=== PATIENT | male | born 1960 | race Caucasian/White ===

== ENCOUNTER 2016-09-22 11:38 | Emergency (ER) | payer OTHER ==
[2016-09-22 11:43] VITALS: BP 125/78; PULSE 62; TEMP 98.1; BMI 31.2
--- NOTE | 2016-09-22 12:21 | PDOC ---
History of Present Illness - General Chief Complaint: Pain, Acute Stated Complaint: right elbow pain Time Seen by Provider: 09/22/16 11:45 History Source: Patient Exam Limitations: No Limitations - History of Present Illness Initial Comments: 09/22/16 12:16 56 yo M with no pmhx here c/o elbow pain s/p hitting his right elbow on a metal peice. felt buzzing. nerve like pain to small finger. now resolved but mild tingling. no wrist or shoulder pain. no weaknesss. no mod factors. no prior surgery. last tetanus over 10 yrs ago. small abrasion to forearm. no other complaints. Past History - Past Medical History Allergies/Adverse Reactions: Allergies Allergy/AdvReac Type Severity Reaction Status Date / Time No Known Allergies Allergy Verified 09/22/16 11:40 Anemia: No Asthma: No Cancer: No Cardiac Disorders: No CVA: No COPD: No CHF: No Dementia: No Diabetes: No GI Disorders: No Disorders: No HTN: No Hypercholesterolemia: Yes Liver Disease: No Seizures: No Thyroid Disease: No - Surgical History Abdominal Surgery: No Appendectomy: No Cardiac Surgery: No Cholecystectomy: No Lung Surgery: No Neurologic Surgery: No Orthopedic Surgery: Yes (Left Shoulder Arthroscopy) - Psycho/Social/Smoking Cessation Hx Anxiety: No Suicidal Ideation: No Smoking History: Never smoked Hx Alcohol Use: Yes Drug/Substance Use Hx: No Substance Use Type: Alcohol Hx Substance Use Treatment: No Review of Systems - Review of Systems Constitutional: No: Chills, Diaphoresis HEENTM: No: Blurred Vision Respiratory: No: Cough, Orthopnea Cardiac (ROS): No: Chest Pain, Edema : No: Burning, Dysuria, Discharge Musculoskeletal: Yes: Joint Pain Integumentary: Yes: Bruising, Other (abrasion). No: Change in Color Neurological: No: Headache, Numbness All Other Systems: Reviewed and Negative *Physical Exam - Vital Signs Last Vital Signs Temp Pulse Resp BP Pulse Ox 98.1 F 62 18 125/78 100 09/22/16 11:39 09/22/16 11:39 09/22/16 11:39 09/22/16 11:39 09/22/16 11:39 - Physical Exam General Appearance: Yes: Appropriately Dressed Respiratory/Chest: positive: Lungs Clear, Normal Breath Sounds Cardiovascular: positive: Regular Rhythm, Regular Rate, S1, S2 Musculoskeletal: positive: Normal Inspection, Other (right elbow with small swellling. small superficial abrasion right forearm. n/v intact. ) Extremity: positive: Normal Capillary Refill Integumentary: positive: Normal Color, Dry, Warm, Other (superficial abrasion) ED Treatment Course - RADIOLOGY Radiology Studies Ordered: Category Date Time Status ELBOW-RIGHT [RAD] Stat Radiology 09/22/16 12:15 Ordered Medical Decision Making - Medical Decision Making 09/22/16 13:14 xray negative for fracture. given motrin for pain, tetanus, dc home. *DC/Admit/Observation/Transfer Diagnosis at time of Disposition: Elbow contusion - Discharge Dispostion Condition at time of disposition: Stable - Patient Instructions Printed Discharge Instructions: Contusion Additional Instructions: apply ice to your elbow, follow up wtih your primary doctor. take ibuprofen 600 mg every 8 hours as needed for pain.
[2016-09-22] MEDS ORDERED: IBUPROFEN 600 MG TABLET (FP) PO ONE (13:14)
[2016-09-22] MEDS ORDERED: DIPHTH,PERTUSS(ACELL),TET 0.5 ML DISP.SYRIN IM ONE (13:14)
== END 2016-09-22 13:23 | disposition home or self-care (01) ==
LOC: FER 11:38
PROC: 3E0234Z Introduction of Serum, Toxoid and Vaccine into Muscle, Percutaneous Approach (ICD-10-PCS; principal; 2016-09-22)
DX: S50.01XA Contusion of right elbow, initial encounter (principal); W22.8XXA Striking against or struck by other objects, initial encounter; Y93.9 Activity, unspecified; Y92.9 Unspecified place or not applicable; E78.00 Pure hypercholesterolemia, unspecified
CPT/HCPCS: 73070-TC-RT; 90715; 99281-25

== ENCOUNTER 2018-04-21 10:23 | Emergency (ER) | payer BC, OTHER ==
--- NOTE | 2018-04-21 10:27 | PDOC ---
History of Present Illness - General Chief Complaint: Edema Stated Complaint: FEET SWELLING Time Seen by Provider: 04/21/18 10:27 Past History - Past Medical History Allergies/Adverse Reactions: Allergies Allergy/AdvReac Type Severity Reaction Status Date / Time No Known Allergies Allergy Verified 04/21/18 10:24 Home Medications: Ambulatory Orders Aspirin [ASA -] 325 mg PO DAILY 04/21/18 Anemia: No Asthma: No Cancer: No Cardiac Disorders: No CVA: No COPD: No CHF: No Dementia: No Diabetes: No GI Disorders: No Disorders: No HTN: No Hypercholesterolemia: Yes Liver Disease: No Seizures: No Thyroid Disease: No - Surgical History Abdominal Surgery: No Appendectomy: No Cardiac Surgery: No Cholecystectomy: No Lung Surgery: No Neurologic Surgery: No Orthopedic Surgery: Yes (Left Shoulder Arthroscopy) - Suicide/Smoking/Psychosocial Hx Smoking History: Never smoked Hx Alcohol Use: Yes Drug/Substance Use Hx: No Substance Use Type: Alcohol Hx Substance Use Treatment: No *DC/Admit/Observation/Transfer - Discharge Dispostion Condition at time of disposition: Stable - Referrals Referrals: Sang Rice MD [Primary Care Provider] - - Patient Instructions - Post Discharge Activity
[2018-04-21 10:29] VITALS: BP 138/76; PULSE 64; TEMP 97.9; BMI 29.8
--- NOTE | 2018-04-21 10:57 | PDOC ---
History of Present Illness - General Chief Complaint: Edema Stated Complaint: FEET SWELLING Time Seen by Provider: 04/21/18 10:27 History Source: Patient Exam Limitations: No Limitations - History of Present Illness Initial Comments: 04/21/18 10:55 57y M with no knowon pmhx presents with leg swelling. Notes he broke a couple of ribs dx by cxr erich mcneil on wednesday, taking perocoet fo rhis pain with improvement. this morning he was noticed leg swellnig to the mid calf, without discoloration without any pain. NOtes that he has been sedentary the past few days, on the couch with his legs hanging down the past 4 days, limiting his physical activity. he denies any cp, sob, hemoptysis, back pain, n/ v, salas, back pain. no prior history of dvts, not on exotenous steroids no family hx of dvts/pe soc history: works for department of [employer] Past History - Past Medical History Allergies/Adverse Reactions: Allergies Allergy/AdvReac Type Severity Reaction Status Date / Time No Known Allergies Allergy Verified 04/21/18 10:24 Home Medications: Ambulatory Orders Aspirin [ASA -] 325 mg PO DAILY 04/21/18 Anemia: No Asthma: No Cancer: No Cardiac Disorders: No CVA: No COPD: No CHF: No Dementia: No Diabetes: No GI Disorders: No Disorders: No HTN: No Hypercholesterolemia: Yes Liver Disease: No Seizures: No Thyroid Disease: No - Surgical History Abdominal Surgery: No Appendectomy: No Cardiac Surgery: No Cholecystectomy: No Lung Surgery: No Neurologic Surgery: No Orthopedic Surgery: Yes (Left Shoulder Arthroscopy) - Suicide/Smoking/Psychosocial Hx Smoking History: Never smoked Hx Alcohol Use: Yes Drug/Substance Use Hx: No Substance Use Type: Alcohol Hx Substance Use Treatment: No Review of Systems - Review of Systems Able to Perform ROS?: Yes Comments:: 04/21/18 11:12 CONSTITUTIONAL: No reported: Fever, Chills, Diaphoresis, Generalized Weakness, Malaise, Loss of Appetite HEENT: No reported: Rhinorrhea, Nasal Congestion, Throat Pain, Throat Swelling, Difficulty Swallowing, Mouth Swelling, Ear Pain, Eye Pain, Visual Changes CARDIOVASCULAR: No reported: Chest Pain, Syncope, Palpitations, Irregular Heart Rate, Lightheadedness RESPIRATORY: No reported: Cough, Shortness of Breath, SOB with Exertion, Orthopnea, Wheezing , Stridor, Hemoptysis GASTROINTESTINAL: No reported: Abdominal pain, Abdominal Distension, Nausea, Vomiting, Diarrhea, Constipation, Melena, Hematochezia GENITOURINARY: No reported: Dysuria, Frequency, Urgency, Hesitancy, Flank Pain, Genital Pain MUSCULOSKELETAL: +b/l leg swelling No reported: Myalgia, Arthralgia, Joint Swelling, Back pain, Neck Pain SKIN: No reported: Rash, Itching, Pallor HEMEATOLOGIC/IMMUNOLOGIC: No reported: Easy Bleeding, Easy Bruising, Lymphadenopathy, Frequent infections ENDOCRINE: No reported: Unexplained Weight Gain, Unexplained Weight Loss, Heat Intolerance , Cold Intolerance NEUROLOGIC: No reported: Headache, Focal Weakness, Paresthesias, Vertigo, Lightheadedness, Unsteady Gait, Seizure, Mental Status Changes, Incontinence PSYCHIATRIC: No reported: Anxiety, Depression *Physical Exam - Vital Signs Last Vital Signs Temp Pulse Resp BP Pulse Ox 97.9 F 64 17 138/76 98 04/21/18 10:24 04/21/18 10:24 04/21/18 10:24 04/21/18 10:24 04/21/18 10:24 - Physical Exam Comments: 04/21/18 11:12 GENERAL: The patient is awake, alert, and fully oriented, Nontoxic - in no acute distress. HEAD: Normocephalic, atraumatic. EYES: extraocular movements intact, sclera anicteric, conjunctiva clear. ENT: Normal voice, Moist mucous membranes. NECK: Normal range of motion, supple LUNGS: Breath sounds equal, clear to auscultation bilaterally. No wheezes, no rhonchi, no rales. HEART: Regular rate and rhythm, without murmur, rub or gallop. ABDOMEN: Soft, nontender, No guarding, no rebound.No CVA tenderness EXTREMITIES: Normal range of motion, b/l leg edema, no calf tenderness, neg homans sign NEUROLOGICAL: No facial assymetry, Normal speech, PSYCH: Normal mood, normal affect. SKIN: Warm, Dry, normal turgor, Moderate Sedation - Procedure Monitoring Vital Signs: Procedure Monitoring Vital Signs Temperature 97.9 F 04/21/18 10:24 Pulse Rate 64 04/21/18 10:24 Respiratory Rate 17 04/21/18 10:24 Blood Pressure 138/76 04/21/18 10:24 O2 Sat by Pulse Oximetry (%) 98 04/21/18 10:24 Medical Decision Making - Medical Decision Making 04/21/18 11:12 57y M hx of recent rib fx presents with b/l leg edema without sob/hemoptysis/cp suspect dependent edema as he has been sedentary and slept last night with his legs hanging down the couch will r/o dvt with US supporitive care at home with leg elevation, ambulation 04/21/18 12:02 n osigns of DVT on us will have pt elevate his legs, incerase ambulation will have him fu with dr. rice as scheduled retun precautions were discussed I discussed the physical exam findings, ancillary test results and final diagnoses with the patient. I answered all of the patient's questions. The patient was satisfied with the care received and felt comfortable with the discharge plan and treatment plan. The patient will call their primary care physician within 24 hours to arrange follow-up and will return to the Emergency Department with any new, persistent or worsening symptoms. *DC/Admit/Observation/Transfer Diagnosis at time of Disposition: Leg edema - Discharge Dispostion Disposition: HOME Condition at time of disposition: Stable Decision to Admit order: No - Referrals Referrals: Sang Rice MD [Primary Care Provider] - - Patient Instructions Printed Discharge Instructions: DI for Peripheral Edema -- Bilateral Additional Instructions: Return to the emergency department immediately with ANY new, persistent or worsening symptoms. Make sure you are elevating your legs to minimize swelling. Ensure you are ambulating frequently You MUST call and follow up with your doctor in 4-5 days for further evaluation of your symptoms. Results were discussed with you. Please make sure your doctor reviews the results of your emergency evaluation. " Print Language: MALAGASY - Post Discharge Activity
== END 2018-04-21 12:24 | disposition home or self-care (01) ==
LOC: FER 10:23
DX: R60.0 Localized edema (principal)
CPT/HCPCS: 93970-TC; 99281-25